=== PATIENT | female | born 1945 | race Caucasian/White ===

== ENCOUNTER 2019-01-23 23:13 | Emergency (ER) | payer OTHER ==
[~2019-01-23] VITALS: Ht 167.6 cm; Wt 99.8 kg
[~2019-01-23 23:13] MED LIST: ACIPHEX 20 MG T20 MG PO; ALEVE220 MG PO; BUSPIRONE HCL10 MG; CLEOCIN HCL150 MG PO; COZAAR 25 MG TA25 MG PO; ENOXAPARIN40 MG/0.1 SUBQ; FLEXERIL PO; HYDROCHLOROTHIA25 M2 PO; HYDROCODONE-AP1 EAC6 PO; LEVOTHYROXIN0.075 MG PO; METFORMIN HCL500 MG PO; OXYCODONE HCL 55 MG PO; PRILOSEC40 MG PO; XANAX 0.5 MG0.5 MG
[2019-01-24 00:02] LABS: HEMATOCRIT 41.3 % (37.0-47.0); HEMOGLOBIN 13.8 gm/dL (12.0-15.0); MCH 29.3 pg (26.0-34.0); MCHC 33.3 g/dL (28.0-37.0); MCV 87.9 fL (80.0-100.0); MPV 7.4 fl. (7.2-11.1); NUCLEATED RBCS 0 /100WBC; PLATELET COUNT* 221 thou/uL (150-400); RDW-CV 14.8 % (10.5-14.5); WBC 7.5 thou/uL (4.0-11.0)
[2019-01-24 00:04] LABS: ANION GAP 9 mmol/L (7-16); BUN 18 mg/dL (7-18); CHLORIDE 101 mmol/L (98-107); CO2 27 mmol/L (21-32); GLUCOSE 165 mg/dL (70-99); POTASSIUM 5.4 mmol/L (3.5-5.1); SODIUM 137 mmol/L (136-145)
[2019-01-24] MEDS ORDERED: NORVASC5 MG PO (00:05)
[2019-01-24] MEDS ORDERED: ATORVASTATIN CA40 MG PO (00:05)
[2019-01-24] MEDS ORDERED: KLOR-CON 1010 MEQ PO (00:06)
[2019-01-24] MEDS ORDERED: NITROGLYCERIN0.4 MG SUBLING (00:06)
[2019-01-24] MEDS ORDERED: GLYBURIDE 2.52.5 M1 PO (00:09)
[2019-01-24 00:13] LABS: ALBUMIN 3.5 g/dL (3.4-5.0); ALKALINE PHOSPHATASE 111 U/L (46-116); LIPASE 143 U/L (73-393); SGPT 28 U/L (30-65); TOTAL BILIRUBIN 0.9 mg/dL (<0.1-1.0); TOTAL PROTEIN 7.6 g/dL (6.4-8.2); TROPONIN-I LEVEL <0.06 ng/mL (<0.06)
[2019-01-24 00:16] LABS: SGOT 38 U/L (15-37)
[2019-01-24 01:15] LABS: URINE BILIRUBIN NEGATIVE (Negative); URINE BLOOD NEGATIVE (Negative); URINE CLARITY CLEAR; URINE COLOR YELLOW; URINE GLUCOSE-RANDOM NEGATIVE (Negative); URINE KETONES NEGATIVE (Negative); URINE LEUKOCYTES-REFLEX TRACE (Negative); URINE NITRITE-REFLEX NEGATIVE (Negative); URINE PROTEIN NEGATIVE (Negative); URINE UROBILINOGEN 0.2 E.U./dl (0.2-1.0)
[2019-01-24] MEDS ORDERED: NORCO 5-325 TA1 EACH PO (01:39)
[2019-01-24] MEDS ORDERED: FLEXERIL PO (01:39)
[2019-01-24 01:41] LABS: ABSOLUTE BASOPHILS 0.1 thou/uL (0.0-0.2); ABSOLUTE EOSINOPHILS 0.1 thou/uL (0.0-0.7); ABSOLUTE LYMPHOCYTES 0.3 thou/uL (0.8-5.3); ABSOLUTE MONOCYTES 0.1 thou/uL (0.0-1.2)
[2019-01-24 01:42] LABS: ANISOCYTOSIS 1+; PLATELET ESTIMATE ADEQUATE
[2019-01-24 01:51] LABS: CASTS None Seen /LPF (None Seen); SQUAMOUS 4-10 Moderate /LPF (0-3)
[2019-01-24 01:52] LABS: BACTERIA-REFLEX 1-9 Few /HPF (None Seen); CRYSTALS None Seen /LPF (None Seen); URINE RBC None Seen /HPF (0-2); URINE WBC-REFLEX 0-5 Rare /HPF (0-5)
[2019-01-24 02:02] VITALS: BP 132/62
--- NOTE | 2019-01-25 11:38 | EKG ---
[place] [address] ELECTROCARDIOGRAM REPORT Name: MARIEBER PASCUAL [facility] [id number] Admission: 01/23/19 Attend Phys: Discharge: 01/24/19 Date of : 45 Report #: [id number] THIS REPORT FOR: //name// [facility] ED Test Date: 2019-01-24 Test Time: 00:07:31 Pat Name: EBER GUERRA Department: Room: Gender: F Residential Coordinator: SONAL : 1945 Requested By: Henry Contreras Order Number: [id number] MD: Marcus Salcedo Measurements Intervals [place] Rate: 86 P: 21 [place]: 161 QRS: -27 QRSD: 113 T: 95 QT: 374 QTc: 448 Interpretive Statements Sinus rhythm Abnormal R-wave progression, late transition LVH with IVCD and secondary repol abnrm Baseline wander in lead(s) V1 Compared to ECG 09/03/2016 02:48:14 Intraventricular conduction delay now present Early repolarization now present Electronically Signed On 01-25-2019 11:37:57 CDT by Marcus Salcedo [email or web address] <ELECTRONICALLY SIGNED> By: Marcus Salcedo MD, FAC 01/25/19 1137 0007 0007 Marcus Salcedo MD, FAC /EPI
== END 2019-01-24 02:06 | disposition home or self-care (01) ==
LOC: M.ERS 23:13
PROVIDERS: Family Medicine
DX: M54.6 Pain in thoracic spine (principal); R19.7 Diarrhea, unspecified; E11.9 Type 2 diabetes mellitus without complications; I10 Essential (primary) hypertension; E05.90 Thyrotoxicosis, unspecified without thyrotoxic crisis or storm; Z88.0 Allergy status to penicillin; Z88.8 Allergy status to other drugs, medicaments and biological substances; Z90.710 Acquired absence of both cervix and uterus; Z90.49 Acquired absence of other specified parts of digestive tract